=== PATIENT | male | born 2000 | race Caucasian/White ===

== ENCOUNTER 2023-01-24 09:04 | Outpatient (CLI) | payer OTHER, SELFPAY | END 2023-01-24 09:05 | disposition home or self-care (01) | LOC: NFLDREF 01-25 07:56 | PROVIDERS: PCP Physician Assistant Medical; Referring Provider Physician Assistant Medical; Visit Provider Physician Assistant Medical | DX: Z00.00 Encounter for general adult medical examination without abnormal findings (principal); R53.83 Other fatigue; Z13.6 Encounter for screening for cardiovascular disorders | CPT/HCPCS: 80053; 80061; 82306; 82607; 84443; 86039 ==

== ENCOUNTER 2023-02-24 08:28 | Outpatient (CLI) | payer OTHER, SELFPAY | END 2023-02-24 08:29 | disposition home or self-care (01) | LOC: NFLDREF 02-25 02:39 | PROVIDERS: PCP Physician Assistant Medical; Referring Provider Physician Assistant Medical; Visit Provider Physician Assistant Medical | DX: Z11.3 Encounter for screening for infections with a predominantly sexual mode of transmission (principal) | CPT/HCPCS: 87491; 87591 ==

== ENCOUNTER 2023-03-04 16:40 | Outpatient (CLI) | payer OTHER, SELFPAY | END 2023-03-04 16:41 | disposition home or self-care (01) | PROVIDERS: PCP Physician Assistant Medical; Visit Provider Registered Nurse | DX: R10.9 Unspecified abdominal pain (principal); R53.83 Other fatigue | CPT/HCPCS: 80076; 83690 ==

== ENCOUNTER 2023-11-14 07:58 | Outpatient (RCR) | payer OTHER, SELFPAY | END 2024-03-13 23:59 | disposition home or self-care (01) | PROVIDERS: PCP Physician Assistant Medical; Visit Provider Physician Assistant Medical | DX: R42 Dizziness and giddiness (principal); H54.7 Unspecified visual loss; R29.898 Other symptoms and signs involving the musculoskeletal system; Z51.89 Encounter for other specified aftercare | CPT/HCPCS: 97140; 97162 ==

== ENCOUNTER 2024-01-21 10:16 | Outpatient (CLI) | payer OTHER, SELFPAY | END 2024-01-21 10:17 | disposition home or self-care (01) | PROVIDERS: PCP Physician Assistant Medical; Visit Provider Physician Assistant Medical | DX: Z00.00 Encounter for general adult medical examination without abnormal findings (principal); K21.9 Gastro-esophageal reflux disease without esophagitis; R53.83 Other fatigue; R63.4 Abnormal weight loss; F41.9 Anxiety disorder, unspecified; R17 Unspecified jaundice; Z11.3 Encounter for screening for infections with a predominantly sexual mode of transmission; Z11.59 Encounter for screening for other viral diseases | CPT/HCPCS: 80053; 80061; 82306; 84443; 86703; 86803 ==

== ENCOUNTER 2024-08-05 10:41 | Outpatient (CLI) | payer OTHER, SELFPAY | END 2024-08-05 10:42 | disposition home or self-care (01) | PROVIDERS: PCP Physician Assistant Medical; Visit Provider Physician Assistant Medical | DX: Z00.00 Encounter for general adult medical examination without abnormal findings (principal); R53.83 Other fatigue; K21.00 Gastro-esophageal reflux disease with esophagitis, without bleeding; G47.8 Other sleep disorders; F41.9 Anxiety disorder, unspecified; Z13.0 Encounter for screening for diseases of the blood and blood-forming organs and certain disorders involving the immune mechanism; Z13.6 Encounter for screening for cardiovascular disorders; Z13.1 Encounter for screening for diabetes mellitus | CPT/HCPCS: 80053; 80061; 84443; 86003 ==